=== PATIENT | female | born 1970 | race Caucasian/White ===

== ENCOUNTER 2017-12-31 20:31 | Emergency (ER) | payer OTHER ==
[~2017-12-31] VITALS: Ht 157.5 cm; Wt 65.8 kg
[2017-12-31] MEDS ORDERED: SYNTHROID125 MCG (20:43)
== END 2017-12-31 21:02 | disposition home or self-care (01) ==
LOC: ER 20:31
DX: H57.8 Other specified disorders of eye and adnexa (principal)